=== PATIENT | female | born 1980 | race Caucasian/White ===

== ENCOUNTER 2016-10-29 02:44 | Inpatient (IN) | payer SELFPAY ==
[~2016-10-29] VITALS: Ht 175.3 cm; Wt 88.5 kg
[~2016-10-29 02:44] MED LIST: PRENATAL FORMU1 EACH PO
[2016-10-29 03:33] LABS: HCT 39.8 % (37.0-47.0); HGB 13.5 g/dl (12.5-16.0); MCH 29.2 pg (25.0-31.0); MCHC 33.9 g/dL (32.0-36.0); MPV 9.9 fL (6.0-9.5); RBC 4.63 M/uL (4.20-5.40); RDW 13.8 % (11.5-14.0); WBC 13.5 K/uL (4.0-10.5)
[2016-10-30 06:38] LABS: HCT 31.2 % (37.0-47.0); HGB 10.3 g/dl (12.5-16.0); MCH 29.2 pg (25.0-31.0); MCV 88.4 fL (78.0-100.0); MPV 9.5 fL (6.0-9.5); RBC 3.53 M/uL (4.20-5.40); RDW 13.7 % (11.5-14.0); WBC 13.5 K/uL (4.0-10.5)
== END 2016-10-30 19:00 | disposition home or self-care (01) | DRG 775 ==
LOC: FOB 02:44 → FOD 02:44 → FOB 03:16 → FOD 03:16 → FOB 10-30 19:00
PROVIDERS: ADMIT Obstetrics & Gynecology
PROC: 0HQ9XZZ Repair Perineum Skin, External Approach (ICD-10-PCS; principal; 2016-10-29)
PROC: 10E0XZZ Delivery of Products of Conception, External Approach (ICD-10-PCS; 2016-10-29)
PROC: 4A1HX4Z Monitoring of Products of Conception, Cardiac Electrical Activity, External Approach (ICD-10-PCS; 2016-10-29)
PROC: 3E0234Z Introduction of Serum, Toxoid and Vaccine into Muscle, Percutaneous Approach (ICD-10-PCS; 2016-10-30)
DX: O62.3 Precipitate labor (principal); D62 Acute posthemorrhagic anemia; O36.0930 Maternal care for other rhesus isoimmunization, third trimester, not applicable or unspecified; Z3A.41 41 weeks gestation of pregnancy; Z37.0 Single live birth; O69.81X0 Labor and delivery complicated by cord around neck, without compression, not applicable or unspecified; O62.2 Other uterine inertia; O09.43 Supervision of pregnancy with grand multiparity, third trimester; O99.02 Anemia complicating childbirth
CPT/HCPCS: 36415; 85461; 86850; 86900; 86901; J2210; J2590; J2790